=== PATIENT | female | born 1990 | race Caucasian/White ===

== ENCOUNTER 2022-12-12 09:54 | Outpatient (CLI) | payer MEDICAID, SELFPAY | END 2022-12-12 09:55 | disposition home or self-care (01) | PROVIDERS: PCP Family Medicine; Visit Provider Registered Nurse | DX: N97.9 Female infertility, unspecified (principal); Z31.69 Encounter for other general counseling and advice on procreation | CPT/HCPCS: 84144; 84146; 84443 ==

== ENCOUNTER 2024-02-18 12:58 | Outpatient (CLI) | payer MEDICAID, SELFPAY ==
--- NOTE | 2024-02-18 13:15 | CRLHL7_ITS ---
For Patients: As a result of the Century Cures Act, medical imaging exams and procedure reports are released immediately into your electronic medical record. You may view this report before your referring provider. If you have questions, please contact your health care provider. Indication: ENCOUNTER FOR FERTILITY TESTING Technique: Fluoroscopic guided hysterosalpingogram. Fluoroscopic time 11 seconds. IMPRESSION: Normal patency of the fallopian tubes with spillage into the peritoneal cavity. Normal exam. Dictated by Tomás Henderson MD @ 02/23/2024 9:08:28 AM (Electronically Signed)
--- NOTE | 2024-02-18 13:40 | W.PM.GYNPROC ---
Procedure Note Time Seen by Provider: 13:40 Date of procedure: 02/11/24 [facility] bill your pro fee for this procedure?: Yes Pre-op diagnosis: Infertility Procedure: Hysterosalpingogram Anesthesia: none Complications: None Surgeon: Mat Salcido MD Estimated blood loss (mL): 0 IV fluids (mL): 0 Urine Output (mL): 0 Findings: Bilateral tubal patency Normal study Procedure Description: After obtaining verbal consent, the patient was placed in the dorsal lithotomy position on the x-ray table. An open-sided bivalve speculum was introduced into the vagina and the cervix easily visualized. The cervix and vagina were then prepped with Betadine. A balloon tipped double-lumen catheter was then gently inserted through the cervical opening into the uterine cavity to the level of the fundus. The balloon was insufflated with 3 mL of air. The patient was repositioned in the supine position, covered, and the radiologist was called to the room. A hysterosalpingogram was then performed. A total of 3 cc of Optiray 300 water soluble contrast dye was injected through the double-lumen catheter under moderate pressure. There was immediate fill of the uterine cavity to the cornua and immediate fill of both fallopian tubes and free spillage of dye on both sides. The balloon was deflated. The catheter was removed. Speculum removed. Excellent hemostasis noted. The patient tolerated the procedure well, though she did have moderate cramping discomfort during and just after the procedure. She was discharged to home in stable condition and to follow [facility].
== END 2024-02-18 12:59 | disposition home or self-care (01) ==
LOC: RAD 12:58
PROVIDERS: PCP Family Medicine; Visit Provider Obstetrics & Gynecology
DX: Z31.41 Encounter for fertility testing (principal)
CPT/HCPCS: 58340; 74740; A4649; Q9967